=== PATIENT | male | born 1995 | race African-American/Black ===

== ENCOUNTER 2021-05-17 13:54 | Emergency (ER) | payer SELFPAY ==
[~2021-05-17] VITALS: Ht 180.3 cm; Wt 70.0 kg
[2021-05-17 14:02] VITALS: BP 122/90
== END 2021-05-17 14:26 | disposition left against medical advice (07) ==
LOC: ER 13:54
DX: Z53.21 Procedure and treatment not carried out due to patient leaving prior to being seen by health care provider (principal)